=== PATIENT | female | born 1970 | race Caucasian/White ===

== ENCOUNTER → 2016-11-12 | Outpatient (REF) | payer OTHER | LOC: M SFHCADAM 20:20 → M LAB REF 20:20 | PROVIDERS: ATTEND Physician Assistant Medical | DX: L29.8 Other pruritus (principal); J02.9 Acute pharyngitis, unspecified | CPT/HCPCS: 87070; 87081; 87205; 87491; 87591; G0123 ==

== ENCOUNTER → 2016-12-23 | Outpatient (REF) | payer OTHER | LOC: M LAB REF 12:24 | PROVIDERS: ATTEND Obstetrics & Gynecology | DX: N39.3 Stress incontinence (female) (male) (principal) ==

== ENCOUNTER → 2017-08-16 | Outpatient (REF) | payer OTHER ==
[2017-08-16 13:11] LABS: CREATININE, URINE 79.7 MG/DL; MALB URINE SIEMENS 11.6 MG/L; MAU/CREAT RATIO 14.5 MCG/MG (0.0-30.0)
== END ==
LOC: M SFHCADAM 08:15
DX: E11.9 Type 2 diabetes mellitus without complications (principal); E78.4 Other hyperlipidemia; E55.9 Vitamin D deficiency, unspecified

== ENCOUNTER 2017-12-22 07:01 | Day surgery (SDC) | payer BC, OTHER ==
[2017-12-22] MEDS: NS 1,000 ML IV (07:15)
[2017-12-22] MEDS ORDERED: PROPOFOL 200 MG/20 ML VIAL As Ordered ×2 (08:06→08:13)
== END 2017-12-22 08:51 | disposition home or self-care (01) ==
LOC: M OPP 07:01
DX: Z12.11 Encounter for screening for malignant neoplasm of colon (principal); K51.90 Ulcerative colitis, unspecified, without complications; K64.0 First degree hemorrhoids; I10 Essential (primary) hypertension; E11.9 Type 2 diabetes mellitus without complications; K21.9 Gastro-esophageal reflux disease without esophagitis; R06.83 Snoring; Z79.82 Long term (current) use of aspirin; Z79.84 Long term (current) use of oral hypoglycemic drugs; Z79.899 Other long term (current) drug therapy
CPT/HCPCS: 45380

== ENCOUNTER → 2018-01-31 | Outpatient (REF) | payer OTHER | LOC: M SFHCADAM 07:41 | DX: D64.9 Anemia, unspecified (principal) ==

== ENCOUNTER → 2018-02-22 | Outpatient (CLI) | payer BC, OTHER | LOC: M RAD 09:33 | DX: E53.8 Deficiency of other specified B group vitamins (principal); D50.9 Iron deficiency anemia, unspecified; D25.2 Subserosal leiomyoma of uterus | CPT/HCPCS: 76856 ==

== ENCOUNTER → 2019-03-13 | Outpatient (CLI) | payer BC, OTHER ==
[~2019-03-13] MED LIST: ASPI81TA26 PO; COEN100C PO; GLIM2TAB PO; INVO100T PO; LATA0.0013 OU; LIAL1.2T PO; LISI10TA4 PO; METF500T13 PO; OMEP20CA4 PO; PRAV20TA2 PO; VITA100067 PO; VITA400C7 PO; XIID5DRO OU
--- NOTE | 2019-03-13 14:39 | REP ---
PELVIS ULTRASOUND: Real-time sonographic evaluation of the pelvis performed utilizing transabdominal and endovaginal technique. Bladder measures 9.3 x 9.3 x 6.6 cm. The uterus measures 8.6 x 4.7 x 5.6 cm. Echotexture of the myometrium is diffusely heterogeneous. Two fibroids are again seen in the uterus. On the left, there is a fibroid measuring 1.4 x 1.3 x 1.2 cm, appearing slightly decreased in size since the prior study of 02/22/2018 at which time it measured 2.2 cm maximally. There is a fibroid on the right 1.8 x 1.4 x 1.3 cm. This appears essentially unchanged compared to the prior study when maximum diameter was 2 cm. Endometrial thickness is 9 mm. Right ovary measures 3.7 x 2.5 x 2.7 cm and left ovary 3.5 x 2.2 x 2.6 cm. Couple of tiny echogenic foci are seen in the periphery of the both ovaries which may represent tiny calcifications. Otherwise, there is no adnexal mass or free fluid. There is no torsion of either ovary, RI right ovary is 0.5 and left ovary 0.55. IMPRESSION: Two fibroids again seen in the uterus, one in the left appears mildly decreased in size and one on the right is essentially unchanged compared to the prior ultrasound of 02/22/2018. No adnexal mass or free fluid. Electronically Signed by Tyree Rascon MD 03/14/2019 01:55 P
== END ==
LOC: M RAD 08:38
PROVIDERS: ATTEND Obstetrics & Gynecology
DX: D25.1 Intramural leiomyoma of uterus (principal)

== ENCOUNTER → 2021-04-15 | Outpatient (CLI) | payer BC, OTHER ==
[~2021-04-15] MED LIST changes: -COEN100C PO; +COEN100C4 PO; -GLIM2TAB PO; +GLIM2TAB4 PO; +LISI10TA22 PO; -LISI10TA4 PO; +OMEP1CAP73 PO; -OMEP20CA4 PO
--- NOTE | 2021-04-15 14:52 | REPMRS ---
Patient History The patient states she had a clinical breast exam 03-17-2021. Patient had first child at age 30. No known family history of cancer. No Hormone Replacement Therapy Tomosynthesis is performed. Volpara breast density is c. Tyrer-zick lifetime risk of breast cancer 13.9%. Patient states no breast complaints today. Patient has signed MRS History Sheet. Digital Woman Screen Mammo: April 15, 2021 - Exam #: [id number] Bilateral CC and MLO view(s) were taken. Technologist: Kiara Purcell, Lower [place] Supervisor Prior study comparison: March 29, 2020, bilateral screening 3D/tomosynthesis, performed at [facility]. March 22, 2020, left breast diagnostic unilateral mammo, performed at [facility]. March 16, 2019, bilateral screening 3D/tomosynthesis, performed at [facility]. FINDINGS: The breast tissue is heterogeneously dense. This may lower the sensitivity of mammography. There has been no change in the appearance of the mammogram from the prior studies. There is a moderate amount of residual fibroglandular tissue which is fairly symmetric. There is no interval development of dominant mass, areas of architectural distortion, or clustered microcalcification typical of malignancy. Assessment: BI-RADS/ACR category 1 mammogram. Negative Mammogram. Recommendation Routine screening mammogram in 1 year (for women over age 40). This mammogram was interpreted with the aid of an FDA-approved computer-aided dectection system. Electronically Signed By: Tyree Rascon MD 04/15/21 [id number]
== END ==
LOC: M WHC 13:19
PROVIDERS: ATTEND Obstetrics & Gynecology
DX: Z12.31 Encounter for screening mammogram for malignant neoplasm of breast (principal)

== ENCOUNTER → 2022-05-05 | Outpatient (CLI) | payer BC, OTHER | LOC: M WHC 12:42 | PROVIDERS: ATTEND Physician Assistant Medical | DX: Z12.31 Encounter for screening mammogram for malignant neoplasm of breast (principal) ==

== ENCOUNTER → 2022-05-20 | Outpatient (CLI) | payer BC, OTHER | LOC: M WHC 13:18 | PROVIDERS: ATTEND Physician Assistant Medical | DX: Z12.31 Encounter for screening mammogram for malignant neoplasm of breast (principal) ==

== ENCOUNTER → 2022-11-11 | Outpatient (REF) | payer OTHER, BC | LOC: M SFHCWAGY 13:08 | PROVIDERS: ATTEND Advanced Practice Midwife | DX: Z12.4 Encounter for screening for malignant neoplasm of cervix (principal); Z01.419 Encounter for gynecological examination (general) (routine) without abnormal findings; Z77.9 Other contact with and (suspected) exposures hazardous to health ==

== ENCOUNTER → 2022-12-09 | Outpatient (CLI) | payer BC, OTHER | LOC: M WHC 11:29 | PROVIDERS: ATTEND Advanced Practice Midwife | DX: N85.2 Hypertrophy of uterus (principal); N92.0 Excessive and frequent menstruation with regular cycle; R92.8 Other abnormal and inconclusive findings on diagnostic imaging of breast; D25.1 Intramural leiomyoma of uterus | CPT/HCPCS: 76830; 76856; 77065; G0279 ==

== ENCOUNTER → 2024-03-14 | Outpatient (CLI) | payer BC, OTHER ==
[~2024-03-14] MED LIST changes: +CHLO25TA PO; +FERR325T82 PO; +GINK40TA PO; +GINK60CA2 PO; +GLUC1CAP10 PO; +JARD1TAB PO; +LOSA50TA28 PO; +PROBCAP14 PO; +RA K500C PO; +VITA-148 PO; +VITA100093 PO; +VITA500C19 PO; +XALA0.007 OU
== END ==
LOC: M ADAMS 13:30
PROVIDERS: ATTEND Physician Assistant Medical
DX: M54.16 Radiculopathy, lumbar region (principal); M54.42 Lumbago with sciatica, left side; M51.36 Other intervertebral disc degeneration, lumbar region

== ENCOUNTER → 2024-03-29 | Outpatient (CLI) | payer BC | LOC: M WHC 11:45 | PROVIDERS: ATTEND Advanced Practice Midwife | DX: Z12.31 Encounter for screening mammogram for malignant neoplasm of breast (principal) ==

== ENCOUNTER → 2024-04-18 | Outpatient (CLI) | payer BC ==
[~2024-04-18] MED LIST changes: -VITA500C19 PO; +VITA500C22 PO
== END ==
LOC: M PLAIMG 13:08
PROVIDERS: ATTEND Physician Assistant Medical
DX: M54.59 Other low back pain (principal)

== ENCOUNTER → 2024-04-18 | Outpatient (CLI) | payer BC | LOC: M WHC 13:12 | PROVIDERS: ATTEND Advanced Practice Midwife | DX: Z12.31 Encounter for screening mammogram for malignant neoplasm of breast (principal) ==

== ENCOUNTER → 2024-10-06 | Outpatient (CLI) | payer BC | LOC: M RAD 13:55 | PROVIDERS: ATTEND Physician Assistant Medical | DX: R10.2 Pelvic and perineal pain (principal); D25.9 Leiomyoma of uterus, unspecified; N83.201 Unspecified ovarian cyst, right side ==

== ENCOUNTER → 2024-10-10 | Outpatient (CLI) | payer BC | LOC: M WHC 12:04 | PROVIDERS: ATTEND Advanced Practice Midwife | DX: R92.8 Other abnormal and inconclusive findings on diagnostic imaging of breast (principal) | CPT/HCPCS: 77065; G0279 ==

== ENCOUNTER → 2025-03-29 | Outpatient (CLI) | payer BC ==
[~2025-03-29] MED LIST changes: +LIFI1DRO4 OU; -PRAV20TA2 PO; +PRAV20TA78 PO; -XIID5DRO OU
== END ==
LOC: M WHC 08:22
PROVIDERS: ATTEND Advanced Practice Midwife
DX: Z12.31 Encounter for screening mammogram for malignant neoplasm of breast (principal); R92.323 Mammographic fibroglandular density, bilateral breasts
CPT/HCPCS: 77066; G0279